=== PATIENT | male | born 1980 | race Caucasian/White ===

== ENCOUNTER 2017-01-11 14:35 | Observation (INO) | payer OTHER ==
[2017-01-11] MEDS ORDERED: ASPIRIN 81 MG CHEW PO STA (14:51)
[2017-01-11] MEDS ORDERED: NITROGLYCERIN OINT 1 INCH/GM PACKET TOPICAL STA (14:51)
--- NOTE | 2017-01-11 14:53 | ED ---
General Adult HPI - General Chief complaint: Chest Pain Stated complaint: Chest Pain Time Seen by Provider: 01/11/17 14:43 Source: patient, RN notes reviewed Mode of arrival: wheelchair Limitations: no limitations - History of Present Illness Initial comments: Patient is a pleasant 36-year-old male presenting to the emergency department with chest discomfort. Onset with this morning. Symptoms have been waxing and waning since that time. Discomfort is currently mild. Patient does have some associated dyspnea. Patient was sweaty in route to the emergency Department. No history of similar symptoms previously. Patient has not exerted himself since onset. No leg pain or leg swelling. No nausea vomiting. Discomfort feels like a pinching sensation and there is radiation towards left arm. - Related Data Home Medications Medication Instructions Recorded Confirmed Aspirin EC [Ecotrin] 325 mg PO DAILY PRN 01/11/17 01/11/17 Allergies Allergy/AdvReac Type Severity Reaction Status Date / Time No Known Allergies Allergy Verified 01/11/17 14:57 Review of Systems ROS Statement: Those systems with pertinent positive or pertinent negative responses have been documented in the HPI. ROS Other: All systems not noted in ROS Statement are negative. Constitutional: Denies: fever Eyes: Denies: eye pain ENT: Denies: ear pain Respiratory: Reports: dyspnea. Denies: cough Cardiovascular: Reports: chest pain Endocrine: Denies: polydipsia Gastrointestinal: Denies: abdominal pain Genitourinary: Denies: dysuria Musculoskeletal: Denies: back pain Skin: Denies: rash Neurological: Denies: headache Past Medical History Past Medical History: Hypertension Additional Past Medical History / Comment(s): He drinks a couple beers during the week but says he but some down over the weekends. History of Any Multi-Drug Resistant Organisms: None Reported Past Surgical History: No Surgical Hx Reported Past Anesthesia/Blood Transfusion Reactions: No Reported Reaction Past Psychological History: No Psychological Hx Reported Smoking Status: Current every day smoker Past Alcohol Use History: Daily Past Drug Use History: Marijuana - Past Family History Mother Additional Family Medical History / Comment(s): MS General Exam Limitations: no limitations General appearance: alert, in no apparent distress Head exam: Present: atraumatic Eye exam: Present: normal appearance, PERRL ENT exam: Present: normal oropharynx Neck exam: Present: normal inspection Respiratory exam: Present: normal lung sounds bilaterally. Absent: chest wall tenderness Cardiovascular Exam: Present: regular rate, normal rhythm Expanded Peripheral pulses: 2+: Radial (R), Radial (L), Dorsalis Pedis (R), Dorsalis Pedis (L) GI/Abdominal exam: Present: soft. Absent: distended, tenderness Extremities exam: Present: normal inspection. Absent: pedal edema, calf tenderness Neurological exam: Present: alert Psychiatric exam: Present: normal affect, normal mood Skin exam: Present: normal color Course Vital Signs 01/11/17 01/11/17 14:42 15:42 Temperature 97.1 F L 97.6 F Pulse Rate 64 76 Respiratory 18 17 Rate Blood Pressure 234/102 159/87 O2 Sat by Pulse 94 L 96 Oximetry EKG Findings - EKG Comments: EKG Findings:: Normal sinus rhythm at 68. Normal intervals. Normal axis. Incomplete right bundle-branch block. LVH criteria. No acute ST change. Medical Decision Making - Medical Decision Making Patient reevaluated and resting comfortably in bed. Symptom-free at this time. Patient and family updated on results and plan. Case was discussed in detail with Dr. Allan, who will admit for hospital call. Admission orders written. Cardiology consult placed. IV heparin started. - Lab Data Result diagrams: 01/11/17 15:08 01/11/17 15:08 Lab Results 01/11/17 01/11/17 01/11/17 Range/Units 15:08 15:08 15:08 WBC 8.0 (3.8-10.6) k/uL RBC 5.49 (4.30-5.90) m/uL Hgb 16.3 (13.0-17.5) gm/dL Hct 48.4 (39.0-53.0) % MCV 88.2 (80.0-100.0) fL MCH 29.6 (25.0-35.0) pg MCHC 33.6 (31.0-37.0) g/dL RDW 13.8 (11.5-15.5) % Plt Count 203 (150-450) k/uL Neutrophils % 55 % Lymphocytes % 31 % Monocytes % 9 % Eosinophils % 2 % Basophils % 1 % Neutrophils # 4.4 (1.3-7.7) k/uL Lymphocytes # 2.5 (1.0-4.8) k/uL Monocytes # 0.7 (0-1.0) k/uL Eosinophils # 0.2 (0-0.7) k/uL Basophils # 0.0 (0-0.2) k/uL PT (9.0-12.0) sec INR (<1.1) APTT (22.0-30.0) sec D-Dimer (<0.60) mg/L FEU Sodium 144 (137-145) mmol/L Potassium 3.9 (3.5-5.1) mmol/L Chloride 109 H (98-107) mmol/L Carbon Dioxide 23 (22-30) mmol/L Anion Gap 12 mmol/L BUN 10 (9-20) mg/dL Creatinine 0.80 (0.66-1.25) mg/dL Est GFR (MDRD) Af Amer >60 (>60 ml/min/1.73 sqM) Est GFR (MDRD) Non-Af >60 (>60 ml/min/1.73 sqM) Glucose 106 H (74-99) mg/dL Calcium 10.2 (8.4-10.2) mg/dL Magnesium 1.6 (1.6-2.3) mg/dL Total Bilirubin 0.7 (0.2-1.3) mg/dL AST 85 H (17-59) U/L ALT 128 H (21-72) U/L Alkaline Phosphatase 63 (38-126) U/L Total Creatine Kinase 279 H (55-170) U/L CK-MB (CK-2) 1.0 (0.0-2.4) ng/mL CK-MB (CK-2) Rel Index 0.4 Troponin I <0.012 (0.000-0.034) ng/mL Total Protein 7.1 (6.3-8.2) g/dL Albumin 4.2 (3.5-5.0) g/dL 01/11/17 Range/Units 15:08 WBC (3.8-10.6) k/uL RBC (4.30-5.90) m/uL Hgb (13.0-17.5) gm/dL Hct (39.0-53.0) % MCV (80.0-100.0) fL MCH (25.0-35.0) pg MCHC (31.0-37.0) g/dL RDW (11.5-15.5) % Plt Count (150-450) k/uL Neutrophils % % Lymphocytes % % Monocytes % % Eosinophils % % Basophils % % Neutrophils # (1.3-7.7) k/uL Lymphocytes # (1.0-4.8) k/uL Monocytes # (0-1.0) k/uL Eosinophils # (0-0.7) k/uL Basophils # (0-0.2) k/uL PT 10.6 (9.0-12.0) sec INR 1.0 (<1.1) APTT 23.7 (22.0-30.0) sec D-Dimer 0.22 (<0.60) mg/L FEU Sodium (137-145) mmol/L Potassium (3.5-5.1) mmol/L Chloride (98-107) mmol/L Carbon Dioxide (22-30) mmol/L Anion Gap mmol/L BUN (9-20) mg/dL Creatinine (0.66-1.25) mg/dL Est GFR (MDRD) Af Amer (>60 ml/min/1.73 sqM) Est GFR (MDRD) Non-Af (>60 ml/min/1.73 sqM) Glucose (74-99) mg/dL Calcium (8.4-10.2) mg/dL Magnesium (1.6-2.3) mg/dL Total Bilirubin (0.2-1.3) mg/dL AST (17-59) U/L ALT (21-72) U/L Alkaline Phosphatase (38-126) U/L Total Creatine Kinase (55-170) U/L CK-MB (CK-2) (0.0-2.4) ng/mL CK-MB (CK-2) Rel Index Troponin I (0.000-0.034) ng/mL Total Protein (6.3-8.2) g/dL Albumin (3.5-5.0) g/dL - Radiology Data Radiology results: image reviewed (Chest x-ray shows no acute process.) Critical Care Time Critical Care Time: Yes Total Critical Care Time: 32 Disposition Clinical Impression: Unstable angina pectoris Disposition: ADMITTED IP TO THIS [facility] Referrals: None,Stated [Primary Care Provider] - 1-2 days Time of Disposition: 16:12
[2017-01-11 15:22] LABS: Basophils % (A) 1 %; CH 31.1; CHCM 35.4; Eosinophils # (A) 0.2 k/uL (0-0.7); Eosinophils % (A) 2 %; HCT 48.4 % (39.0-53.0); HDW 2.82; HGB 16.3 gm/dL (13.0-17.5); Luc % (Auto) 3; Lymphocytes # (A) 2.5 k/uL (1.0-4.8); Lymphocytes % (A) 31 %; MCH 29.6 pg (25.0-35.0); MCHC 33.6 g/dL (31.0-37.0); MCV 88.2 fL (80.0-100.0); Mean Platelet Volume 7.3; Monocytes # (A) 0.7 k/uL (0-1.0); Monocytes % (A) 9 %; Neutrophils # (A) 4.4 k/uL (1.3-7.7); Neutrophils % (A) 55 %; RBC 5.49 m/uL (4.30-5.90); RDW 13.8 % (11.5-15.5); WBC (Perox) 8.06
[2017-01-11 15:34] LABS: Partial Thromboplastin Time 23.7 sec (22.0-30.0); Prothrombin Time 10.6 sec (9.0-12.0)
[2017-01-11 15:38] LABS: ALT 128 U/L (21-72); AST 85 U/L (17-59); Alkaline Phosphatase 63 U/L (38-126); Anion Gap 12 mmol/L; Blood Urea Nitrogen 10 mg/dL (9-20); Calcium 10.2 mg/dL (8.4-10.2); Carbon Dioxide 23 mmol/L (22-30); Chloride 109 mmol/L (98-107); Glucose 106 mg/dL (74-99); Magnesium 1.6 mg/dL (1.6-2.3); Non-African American GFR(MDRD) >60 (>60 ml/min/1.73 sqM); Potassium 3.9 mmol/L (3.5-5.1); Sodium 144 mmol/L (137-145); Total Bilirubin 0.7 mg/dL (0.2-1.3); Total Protein 7.1 g/dL (6.3-8.2)
[2017-01-11 15:47] LABS: Creatine Kinase 279 U/L (55-170)
[2017-01-11 16:00] LABS: Troponin I <0.012 ng/mL (0.000-0.034)
--- NOTE | 2017-01-11 16:01 | XR ---
EXAMINATION TYPE: XR chest 2V DATE OF EXAM: 01/11/2017 3:20 PM COMPARISON: 01/22/2014 INDICATION: Short of breath TECHNIQUE: Single frontal view of the chest is obtained. FINDINGS: The heart size is normal. The pulmonary vasculature is normal. The lungs are clear. IMPRESSION: 1. No acute pulmonary process.
[2017-01-11] MEDS ORDERED: HEPARIN SODIUM,PORCINE 5,000 UNIT/ML 1 ML VIAL IV ONE (16:12)
[2017-01-11] MEDS ORDERED: NITROGLYCERIN SL TABS 0.4 MG TAB SUBLINGUAL PRN (16:12)
[2017-01-11] MEDS ORDERED: HEPARIN SODIUM,PORCINE 5,000 UNIT/ML 1 ML VIAL IV PRN (16:12)
[2017-01-11] MEDS ORDERED: HEPARIN SODIUM,PORCINE/D5W PMX 25,000 UNIT in DEXTROSE/WATER 1 500ML.BAG IV SCH (16:30)
[2017-01-11] MEDS: NITROGLYCERIN OINT 1 INCH/GM PACKET TOPICAL SCH ×2 (18:41→22:23)
[2017-01-11 21:49] LABS: Creatine Kinase 209 U/L (55-170)
[2017-01-11 22:02] LABS: Creatine Kinase MB 0.8 ng/mL (0.0-2.4); Troponin I <0.012 ng/mL (0.000-0.034)
[2017-01-11] MEDS ORDERED: ACETAMINOPHEN TAB 325 MG TAB PO PRN (22:22)
[2017-01-11 22:31] VITALS: BMI 33.4
[2017-01-12 03:19] LABS: Creatine Kinase 195 U/L (55-170)
[2017-01-12 03:33] LABS: Creatine Kinase MB 0.7 ng/mL (0.0-2.4); Troponin I <0.012 ng/mL (0.000-0.034)
[2017-01-12] MEDS: NITROGLYCERIN OINT 1 INCH/GM PACKET TOPICAL SCH (06:04)
[2017-01-12 07:32] VITALS: RESP 16
[2017-01-12 07:55] LABS: Cholesterol 197 mg/dL (<200); HDL Cholesterol 54 mg/dL (40-60); Triglycerides 185 mg/dL (<150)
[2017-01-12] MEDS ORDERED: ASPIRIN 325 MG TAB PO SCH (09:00)
[2017-01-12] MEDS ORDERED: LOSARTAN 50 MG TAB PO SCH (09:30)
--- NOTE | 2017-01-12 09:57 | CONS ---
Mr. Silvio Merlos is a 36-year-old male patient who woke up yesterday and had a pinching pinprick sensation, recurrent on the left pectoral area which radiated to the shoulder and left arm. He took 2 aspirins, the discomfort continued and he came to the ER. In the ER, his first ECG did not show any ST-segment abnormalities. It showed sinus rhythm with a relatively short MI interval of about 126 ms [address] no definite [address] segment abnormalities. So far 3 sets of cardiac enzymes reveal normal. His chest x-ray was normal. He has been complaining of being a little more short of breath than usual in the last few months. His states that when he gets stressed out or angry he starts experiencing chest discomfort and doubles over. He has not seen a doctor and she is trying to get in to see without much luck. She does feed he has sleep apnea and stops breathing at night. PAST HISTORY: He may have hypertension and the bought a blood pressure machine recently. No diabetes. FAMILY HISTORY: His father had a CVA in his 30s apparently. REVIEW OF SYSTEMS: No fever, chills, rigors. No cough or expectoration. No nausea, vomiting or diarrhea. No hematuria or dysuria. No strokes or seizures. No skin lesions or musculoskeletal complaints. On examination, his blood pressure is 152/91 mmHg, 147/92 mmHg, afebrile. Heart rate is in the 60s. Head and neck examination is normal. Heart sounds S1, S2 are normal. No murmurs, no gallops, no definite chest wall tenderness. ABDOMEN: Soft, nontender. EXTREMITIES: Warm. No edema. No carotid bruits. No JVD. He is lying flat in bed. IMPRESSION: 1. Atypical chest discomfort, recurrent. 2. Likely hypertension. Blood pressure is elevated here. He does not take any medications and no evidence for an acute myocardial infarction. 3. Possible sleep apnea. 4. Denies diabetes. SUGGEST: 1. His CPKs are elevated with a downward trend, but his troponins are normal suggestive of musculoskeletal enzyme leak rather than a cardiac source. LDL is 106. Triglycerides 185, total cholesterol 197, AST of 54. Suggest losartan 50 mg p.o. daily and watch the blood pressure and follow up thereafter. 2. Exercise stress echo to maximum capacity. If this is normal, he may go home and follow up as an outpatient. As an outpatient he would need a sleep apnea assessment and hypertension management. Further recommendations based upon the results of the stress test.
[2017-01-12 11:40] VITALS: BP 149/87; PULSE 66; TEMP 98.6
--- NOTE | 2017-01-12 12:38 | ECHOS ---
DATE OF SERVICE: 01/12/2017 AGE: 36Y SEX: M HT: 71" WT: 239 lbs. Protocol Remy: X Others: Stress Echo Stage: 4 Dur. of Exercise: 9:30 *Heart Rate Blood Pressure *Rest: 86 Rest: 140/62 * *Max. Achieved: 175 Maximum BP: 211/87 85% PMHR: 158 100% PMHR: 186 *METS: 11.6 INDICATIONS: UA MEDICATIONS: - Baseline rhythm is sinus mechanism, rate of 86, normal axis and intervals. Normal electrocardiogram. Baseline blood pressure 140/62 mmHg, patient exercised on Remy protocol for 9 minutes 30 seconds reaching a peak rate of 175 beats per minute, which is equal to 94% of maximum predicted heart rate; peak blood pressure 211/80/7 mmHg. The test was terminated due to fatigue. There was no chest pain sounds. Electrocardiographic monitoring revealed [address] segment depression in the inferolateral leads, that resolved rapidly in recovery. FINDINGS: Baseline echocardiogram revealed normal wall motion at peak exercise. There was normal wall motion augmentation with no hypokinesis or dyskinesis. CONCLUSION: 1. Average exercise tolerance with a positive electrocardiograph stress testing. 2. Normal stress echocardiogram with no evidence of stress-induced ischemia. MTDD
--- NOTE | 2017-01-12 17:08 | HP ---
DATE OF ADMISSION: DATE OF SERVICE: 01/12/2017 CHIEF COMPLAINT: Chest pain. HISTORY OF PRESENT ILLNESS: This 36-year-old gentleman with a past medical history of multiple medical problems, including history of hypertension, history of nicotine dependence, history of THC, being followed by no primary physician in the outpatient setting, was admitted with chest pain to [facility]. The patient initially had chest discomfort which was felt in the anterior part of the chest which was waxing and waning. The patient also complained of left shoulder pain and left arm pain, also, which was increasing. The patient had some sweating also. Because of increasing pain and difficulty, the patient came to [facility] and was admitted for further evaluation and treatment. Initial troponins are negative. There is no history of any fever, rigor, or chills. No history of any headache, loss of consciousness, seizures. PAST MEDICAL HISTORY: 1. History of hypertension. 2. History of nicotine dependence. Medications prior to admission include: 1. Ecotrin 320 mg daily p.r.n. 2. Cozaar 50 mg daily. ALLERGIES: NONE. FAMILY HISTORY: History of CVA, TIA, multiple sclerosis. SOCIAL HISTORY: History of smoking. History of THC. REVIEW OF SYSTEMS: ENT: No diminishing hearing. No diminished vision. CARDIOVASCULAR SYSTEM: As mentioned earlier. RESPIRATORY SYSTEM: As mentioned earlier. GI: No nausea, vomiting. : No dysuria. NERVOUS SYSTEM: No numbness or weakness. ALLERGY/IMMUNOLOGY: No asthma, hayfever. MUSCULOSKELETAL: As mentioned earlier. HEMATOLOGY/ONCOLOGY: No history of anemia. ENDOCRINE: No history of diabetes, hypothyroidism. CONSTITUTIONAL: As mentioned earlier. DERMATOLOGY: Negative. RHEUMATOLOGY: Negative. PSYCHIATRY: As mentioned earlier. PHYSICAL EXAMINATION: Patient alert and oriented x3. Pulse 66, blood pressure 149/87, respiration 16, temperature 98.6, pulse ox 94% on room air. HEENT: Conjunctivae normal. Oral mucosa moist. NECK: No jugular venous distention. No carotid bruit. No lymph node enlargement. CARDIOVASCULAR SYSTEM: S1, S2 normal. No murmur. No thrills. RESPIRATORY SYSTEM: Breath sounds diminished at the bases. No rhonchi. No crackles. ABDOMEN: ABDOMEN: Soft, nontender. No mass palpable. No hepatosplenomegaly. LEGS: No edema. No swelling. NERVOUS SYSTEM: Higher functions as mentioned earlier. Moves all 4 limbs. No focal motor or sensory deficit. LYMPHATICS: No lymph node palpable in neck, axillae or groin. SKIN: No ulcer, rash, bleeding. LABS: CBC within normal limits. APTT 30.1. AST is 85, ALT 128. ASSESSMENT: 1. Chest pain for evaluation; possible unstable angina. 2. Increased AST, ALT; possible acute hepatitis. 3. Increased creatine kinase. 4. History of hypertension. 5. History of nicotine dependence. 6. History of tetrahydrocannabinol. RECOMMENDATIONS AND DISCUSSION: In this 36-year-old gentleman who was admitted with multiple complex medical issues, we will monitor the patient closely, continue the current medications, continue symptomatic treatment. I recommend unstable angina protocol. Rule out myocardial infarction. Cardiology consultation. Prognosis guarded. Further recommendations to follow. See orders for further details.
--- NOTE | 2017-01-13 10:51 | DS ---
DATE OF ADMISSION: 01/11/2017 DATE OF DISCHARGE: 01/12/2017 FINAL DIAGNOSES: 1. Chest pain, myocardial infarction ruled out, negative stress echocardiogram, possibly musculoskeletal chest pain. 2. Hypertension. 3. History of nicotine dependence. 4. History of THC. 5. Increased AST, ALT, possible acute hepatitis of undetermined etiology. 6. Increased CK. 7. LDL 106. DISCHARGE DISPOSITION: The patient will be discharged in a stable condition with guarded prognosis. Discharged by Cardiology. HISTORY OF PRESENT ILLNESS: The 36-year-old gentleman with a past medical history of multiple medical problems was admitted with chest stress, myocardial infarction rule out. Stress test was negative. The patient will be discharged home in stable condition with guarded prognosis with following advice and medications. 1. Diet is cardiac. 2. Activity limited until followup. 3. Labs are as noted. 4. Follow up with Dr. Montez in 2 to 3 days. 5. Follow up with Cardiology as recommended. The medications are: 1. Losartan, Cozaar, 50 mg p.o. daily. 2. Ecotrin 325 mg daily p.r.n. Follow-up labs with Dr. Montez office and Cardiology. Once again, the patient will be discharged in stable condition with guarded prognosis. SHANTED
== END 2017-01-12 15:48 | disposition home or self-care (01) ==
LOC: EC 14:35 → 3OBS 16:12
PROVIDERS: ADMIT Internal Medicine; ATTEND Internal Medicine
DX: R07.89 Other chest pain (principal); M79.602 Pain in left arm; M25.512 Pain in left shoulder; R61 Generalized hyperhidrosis; R06.02 Shortness of breath; I10 Essential (primary) hypertension; R74.8 Abnormal levels of other serum enzymes; Z82.0 Family history of epilepsy and other diseases of the nervous system; Z82.3 Family history of stroke; Z79.899 Other long term (current) drug therapy; Z87.891 Personal history of nicotine dependence
CPT/HCPCS: 99291; 96376 ×2; 96365 ×2; 96366 ×7; 36415; 93005; 93017; 93350; 85379; 83880; 80061; 80053; 82550 ×2; 82553 ×2; 83735; 84484 ×2; 85025; 85049; 85610; 85730 ×2; 71020; G0378 ×2; J1644 ×2

== ENCOUNTER → 2017-10-28 | Outpatient (CLI) | payer OTHER ==
--- NOTE | 2017-10-28 12:43 | XR ---
EXAMINATION TYPE: XR knee complete bilateral DATE OF EXAM: 10/28/2017 COMPARISON: NONE HISTORY: Bilateral knee pain TECHNIQUE: Bilateral knee is examined in 3 views each. FINDINGS: No acute fractures are evident. No joint effusion is evident. Joint spaces are preserved. F indings appear symmetrical. IMPRESSION: 1. Normal bilateral knees
== END | disposition home or self-care (01) ==
LOC: RADXRMAIN 11:57
PROVIDERS: ATTEND Physician Assistant
DX: M25.561 Pain in right knee (principal); M25.562 Pain in left knee